=== PATIENT | female | born 1980 | race Hispanic/Latino ===

== ENCOUNTER 2024-02-18 20:00 | Inpatient (IN) | payer BC, OTHER ==
[~2024-02-18 20:00] MED LIST: Iopamidol-370 76% 500 ML MDV (1 ML CHARGE) ONE
[2024-02-18] MEDS ORDERED: Morphine 4 MG/ML VIAL ONE (20:11)
[2024-02-18] MEDS ORDERED: Ondansetron PF 4 MG/2 ML Vial ONE (20:11)
[2024-02-18] MEDS ORDERED: CEFAZOLIN 1 GM VIAL ONE (20:34)
[2024-02-18] MEDS ORDERED: CEFAZOLIN 2 GM VIAL ONE (20:34)
[2024-02-18] MEDS ORDERED: Sodium Chloride 0.9% 200 ML ONE (20:35)
[2024-02-18] MEDS ORDERED: Boostrix 0.5 ML (Tdap) VIAL (>/=7 yrs of age) ONE (20:35)
[2024-02-18 20:46] LABS: #Basophils 0.04 10x3/uL (0.0-0.2); #Eosinophils Less than 0.03 10x3/uL (0.0-0.7); %Basophils 0.4 % (0.0-1.0); %Lymphocytes 2.5 % (21.0-51.0); %Monocytes 5.1 % (0.0-10.0); %Neutrophils 90.4 % (42.0-75.0); Hematocrit 28.1 % (36.0-47.0); Hemoglobin 8.8 g/dL (12.0-16.0); Mean Corpuscular HGB CONC 31.3 g/dL (32.0-36.0); Mean Corpuscular Hemoglobin 32.2 pg (27.0-31.0); Mean Corpuscular Volume 102.9 fL (78.0-98.0); Platelet Count 269 10x3/uL (130-400); RBC Distribution Width 19.6 % (11.5-14.5); Red Blood Cell (RBC) Count 2.73 mill/uL (4.20-5.40)
[2024-02-18 20:59] LABS: Alcohol Less than 10.0 mg/dL (Less than 10)
[2024-02-18 21:02] LABS: ALT (SGPT) 9 U/L (8-55); AST (SGOT) 24 U/L (5-34); Albumin 3.5 g/dL (3.5-5.0); Alkaline Phosphatase 105 U/L (40-110); Anion Gap 13 mmol/L (10-20); BUN (Urea Nitrogen) 37 mg/dL (7.0-18.7); Bilirubin, Total 0.3 mg/dL (0.2-1.2); Calc. Creatinine Clearance 0 mL/min (70-130); Calcium 8.3 mg/dL (7.8-10.44); Carbon Dioxide 14 mmol/L (22-29); Chloride 109 mmol/L (98-107); Estimated GFR 28; Globulin 2.7 g/dL (2.4-3.5); Glucose 158 mg/dL (70-105); Lipase 49 U/L (8-78); Potassium 5.4 mmol/L (3.5-5.1); Protein, Total 6.2 g/dL (6.0-8.3); Sodium 131 mmol/L (136-145)
[2024-02-18 21:04] LABS: INR-International Normal Ratio 1.2; PTT 25.3 sec (22.9-36.1); Prothrombin Time 14.9 sec (12.0-14.7)
[2024-02-18 21:07] LABS: Troponin I Less than 0.010 ng/mL (< 0.028)
[2024-02-19 00:35] LABS: Bacteria/HPF None Seen HPF (None Seen); Bilirubin Negative (Negative); Blood, Urine 2+ (Negative); CAUTI Indications for Culture Pelvic or flank pain; Clarity Clear (Clear); Glucose, Urine (Dipstick) 70 mg/dL (Negative); Ketone, Urine Negative (Negative); Leukocyte Negative Leu/uL (Negative); Nitrite Negative (Negative); Protein, Urine (Dipstick) Negative (Neg-Trace); RBC/HPF 0-3 HPF (0-3); Squamous Epithelial 0-3 HPF (0-3); Urobilinogen Normal mg/dL (Less than 2); WBC/HPF None Seen HPF (0-3); pH, Urine 5.5 (5.0-9.0)
[2024-02-19 00:37] LABS: Urine Culture Reflex No No
[2024-02-19 00:43] LABS: Amphetamine Not Detected (NotDetected); Barbiturates Screen Not Detected (NotDetected); Benzodiazepine Screen Not Detected (NotDetected); Cocaine Metabolite Screen Not Detected (NotDetected); Methadone Not Detected (NotDetected); Methamphetamine Not Detected (NotDetected); Opiate Screen Detected (NotDetected); Oxycodone Screen Not Detected (NotDetected); Phencyclidine (PCP) Not Detected (NotDetected); THC/Cannabinoid Screen Not Detected (NotDetected); Tricyclic Screen Not Detected (NotDetected)
[2024-02-19] MEDS ORDERED: Dextrose 50% Abboject 50 ML SYRINGE SLOW IVP PRN (03:08)
[2024-02-19] MEDS ORDERED: HYDROcodone/Acetaminophen 7.5/325 mg Tablet PO PRN ×2 (03:08→03:27)
[2024-02-19] MEDS ORDERED: Acetaminophen 325 MG TAB PO PRN (03:08)
[2024-02-19] MEDS ORDERED: Ondansetron PF 4 MG/2 ML Vial IVP PRN (03:08)
[2024-02-19] MEDS ORDERED: Dextrose 5% in Water 1,000 ML IV PRN (03:08)
[2024-02-19] MEDS ORDERED: Glucagon 1 MG/ML KIT IM PRN (03:08)
[2024-02-19] MEDS ORDERED: Morphine 4 MG/ML VIAL SLOW IVP PRN (03:08)
[2024-02-19] MEDS ORDERED: Morphine 4 MG/ML VIAL ONE (03:19)
[2024-02-19] MEDS ORDERED: hydrALAZINE 20 MG/ML VIAL ONE (03:19)
[2024-02-19] MEDS: hydrALAZINE 20 MG/ML VIAL SLOW IVP PRN (03:27)
[2024-02-19] MEDS: Morphine 4 MG/ML VIAL SLOW IVP PRN (03:34)
[2024-02-19 05:28] LABS: #Basophils 0.03 10x3/uL (0.0-0.2); #Eosinophils Less than 0.03 10x3/uL (0.0-0.7); %Basophils 0.5 % (0.0-1.0); %Lymphocytes 7.1 % (21.0-51.0); %Monocytes 8.1 % (0.0-10.0); %Neutrophils 83.3 % (42.0-75.0); Hematocrit 34.5 % (36.0-47.0); Hemoglobin 10.8 g/dL (12.0-16.0); Mean Corpuscular HGB CONC 31.3 g/dL (32.0-36.0); Mean Corpuscular Hemoglobin 31.7 pg (27.0-31.0); Mean Corpuscular Volume 101.2 fL (78.0-98.0); Mean Platelet Volume 11.2 fL (7.4-10.4); Platelet Count 264 10x3/uL (130-400); RBC Distribution Width 19.4 % (11.5-14.5); Red Blood Cell (RBC) Count 3.41 mill/uL (4.20-5.40)
[2024-02-19 05:46] LABS: ALT (SGPT) 21 U/L (8-55); AST (SGOT) 59 U/L (5-34); Albumin 4.1 g/dL (3.5-5.0); Alkaline Phosphatase 137 U/L (40-110); Anion Gap 14 mmol/L (10-20); BUN (Urea Nitrogen) 29 mg/dL (7.0-18.7); Bilirubin, Total 0.4 mg/dL (0.2-1.2); Calc. Creatinine Clearance 0 mL/min (70-130); Calcium 9.5 mg/dL (7.8-10.44); Carbon Dioxide 15 mmol/L (22-29); Chloride 113 mmol/L (98-107); Estimated GFR 32; Globulin 3.6 g/dL (2.4-3.5); Glucose 109 mg/dL (70-105); Potassium 4.9 mmol/L (3.5-5.1); Protein, Total 7.7 g/dL (6.0-8.3); Sodium 137 mmol/L (136-145)
[2024-02-19 09:12] VITALS: BMI 26.2
[2024-02-19] MEDS ORDERED: Albumin 25% 100 ML ONE (10:31)
[2024-02-19] MEDS ORDERED: Lidocaine 1% PF 5 ML VIAL ONE (10:50)
[2024-02-19] MEDS: Albumin 5% 25 GM (500 mL) BOT IVPB SCH (11:01)
[2024-02-19] MEDS: Sodium Chloride 0.9% 1,000 ML IV SCH (12:40)
[2024-02-19 14:00] VITALS: TEMP 98
[2024-02-19 14:40] VITALS: BP 129/65
== END 2024-02-19 14:50 | disposition home or self-care (01) | DRG 964 ==
LOC: ERS 20:00 → ERHOLD 23:49
PROVIDERS: ADMIT Surgery; ATTEND Surgery
PROC: 30233J1 Transfusion of Nonautologous Serum Albumin into Peripheral Vein, Percutaneous Approach (ICD-10-PCS; principal; 2024-02-19)
DX: S06.6XAA Traumatic subarachnoid hemorrhage with loss of consciousness status unknown, initial encounter (principal); S12.600A Unspecified displaced fracture of seventh cervical vertebra, initial encounter for closed fracture; S27.0XXA Traumatic pneumothorax, initial encounter; S22.019A Unspecified fracture of first thoracic vertebra, initial encounter for closed fracture; S22.029A Unspecified fracture of second thoracic vertebra, initial encounter for closed fracture; Z94.0 Kidney transplant status; V89.2XXA Person injured in unspecified motor-vehicle accident, traffic, initial encounter; R40.2410 Glasgow coma scale score 13-15, unspecified time; Z79.899 Other long term (current) drug therapy; S06.5XAA Traumatic subdural hemorrhage with loss of consciousness status unknown, initial encounter
CPT/HCPCS: 36415; 36416; 70450; 70486; 71045; 71260; 72125; 72170; 74177; 80053; 80306; 80307; 81001; 83690; 84484; 85025; 85610; 85730; 86850; 86900; 86901; 90471; 90715; 93005; 94760; 96365; 96375; G0390; J0360; J0690; J2272; J2405; J7030; P9045; P9047; Q9967